=== PATIENT | female | born 1955 | race Caucasian/White ===

== ENCOUNTER 2016-03-24 08:29 | Inpatient (IN) | payer OTHER ==
[~2016-03-24] VITALS: Ht 165.1 cm; Wt 98.9 kg
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
[2016-03-31] MEDS ORDERED: PRILOSEC DPS20 MG PO (16:43)
[2016-03-31] MEDS ORDERED: TENORMIN DPS50 MG PO (16:43)
[2016-03-31] MEDS ORDERED: MAXZIDE-25 DPS1 TAB PO (16:44)
[2016-03-31] MEDS ORDERED: LIPITOR DPS20 MG PO (16:44)
[2016-03-31] MEDS ORDERED: AMBIEN DPS5 MG PO (16:44)
[2016-03-31] MEDS ORDERED: MYCOPHENOLATE500 MG PO (16:44)
[2016-03-31] MEDS ORDERED: COLACE-DPS100 MG PO (16:44)
[2016-03-31] MEDS ORDERED: MOTRIN-DPS600 MG PO (16:45)
[2016-03-31] MEDS ORDERED: OXY-CONTIN20 MG PO (16:45)
[2016-03-31] MEDS ORDERED: CITROMA296 ML PO (16:45)
[2016-03-31] MEDS ORDERED: ZOFRAN DPS8 MG PO (16:46)
[2016-03-31] MEDS ORDERED: PERCOCET 7.5 DP1 TAB PO (16:46)
[2016-03-31] MEDS ORDERED: TYLENOL DPS325 MG PO (16:46)
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
--- NOTE | 2016-06-09 10:17 | DS ---
ADMIT: 03/24/2016 RM/LOC: 303 [facility] MR#: [id number] [address] [address] TEENA DAVENPORT [address] [place] [address] Discharge Summary SEX: F AGE: 60 : 1955 ADMISSION DATE: 03/24/2016 DISCHARGE DATE: 03/30/2016 ADMITTING DIAGNOSES: 1. Hypotension. 2. Grade 4 splenic laceration. DISMISSAL DIAGNOSES: 1. Grade 4 splenic laceration with active extravasation. 2. Hypotension. 3. Previous bilateral breast reduction. 4. Retroperitoneal fibrosis. 5. Immunoglobulin nephropathy. 6. Previous hypertension. PROCEDURES: Coil embolization of splenic artery with celiac and splenic artery angiogram. HOSPITAL COURSE: The patient was an ICU admit with routine orders. Interventional radiology was consulted for arterial embolization of the splenic artery. She was started on 2 units of packed red blood cells and 2 units of fresh frozen plasma. Serial H and Hs were drawn and the patient was started on Pepcid. Tuttle catheter was placed. When she was admitted, she was hypotensive so we had lactated Ringer's running at 150 mL/h. 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 While in the hospital, it was found that the patient did have a UTI and so she was started on IV Levaquin. Throughout her hospital stay, the patient's abdominal pain was persistent. However, we just watched her in the meantime. The Tuttle catheter was pulled on 03/27/2016. She was tolerating an advanced diet so she was weaned off her morphine SCREEN MAKING TECHNICIAN and was switched to oral pain medications. Labs began to normalize so her IV Levaquin was stopped. Slowly, the patient continued to recover well. She had normal return of her bowel function and continued to advance diet. Vitals normalized and hemoglobin was stabilizing. Suddenly she did have a transient episode of emesis prior to dismissal and so she stayed for one more day. This did resolve on its own and the patient was able to be discharged home on 03/30/2016. DISCHARGE INSTRUCTIONS: 1. Follow up with Dr. Montaño in clinic in two weeks. 2. Diet as tolerated. 3. Activity as tolerated. DISCHARGE MEDICATIONS: 1. Atenolol 50 mg daily. 2. Omeprazole 40 mg daily. 3. Ambien 5 mg 1-2 tabs at bedtime p.r.n. 4. Atorvastatin 20 mg daily. 5. Colace 100 mg b.i.d. 6. OxyContin 20 mg b.i.d. ADMIT: 03/24/2016 RM/LOC: 303 [facility] MR#: [id number] [address] [address] ETHEL TEENA L [address] [place] [address] Discharge Summary SEX: F AGE: 60 : 1955 7. Mag citrate 100 mL q.i.d. until bowel movement. 8. Motrin 600 mg q.8h p.r.n. 9. Percocet 7.5/325 1-2 tabs q.4-6 hours p.r.n. 10.Tylenol 650 mg q.4 p.r.n. 11.Zofran 8 mg q.6 p.r.n. JENNIFER Man / Flash Montaño MD / vdg JOB #: [id number] CC: Flash Montaño MD, Attending Physician Flash Montaño MD, Family Physician Waqar Levine MD [address] [place] [id number] Jaswinder Rodas MD [address] [facility] [address] [place] [id number]
== END 2016-03-30 18:00 | disposition home or self-care (01) | DRG 981 ==
LOC: ER 08:29 → 3ICU 10:50
PROVIDERS: ADMIT Surgery
PROC: B4131ZZ Fluoroscopy of Splenic Arteries using Low Osmolar Contrast (ICD-10-PCS; principal; 2016-03-24)
PROC: 04V43DZ Restriction of Splenic Artery with Intraluminal Device, Percutaneous Approach (ICD-10-PCS; principal; 2016-03-24)
PROC: 30233N1 Transfusion of Nonautologous Red Blood Cells into Peripheral Vein, Percutaneous Approach (ICD-10-PCS; principal; 2016-03-24)
DX: S36.032A Major laceration of spleen, initial encounter (principal); T79.4XXA Traumatic shock, initial encounter; D80.3 Selective deficiency of immunoglobulin G [IgG] subclasses; N39.0 Urinary tract infection, site not specified; V43.52XA Car driver injured in collision with other type car in traffic accident, initial encounter; B95.2 Enterococcus as the cause of diseases classified elsewhere; I10 Essential (primary) hypertension; N13.5 Crossing vessel and stricture of ureter without hydronephrosis; R91.8 Other nonspecific abnormal finding of lung field; Z68.36 Body mass index [BMI] 36.0-36.9, adult; E66.9 Obesity, unspecified; Z98.84 Bariatric surgery status